=== PATIENT | male | born 1940 | race Caucasian/White ===

== ENCOUNTER 2018-08-31 01:45 | Outpatient (CLI) | payer OTHER, SELFPAY ==
[2018-08-31 11:29] LABS: CREATININE 1.42 mg/dL (0.70-1.30); Cholesterol 148 mg/dL (50-200); Estimated GFR 48.22 (mL/min/1.73m2); HDL Cholesterol 41 mg/dL (40-60); LDL CHOLESTEROL 91 mg/dL (<100); Potassium 4.5 mmol/L (3.5-5.1); Triglyceride 128 mg/dL (30-150)
== END 2018-08-31 02:05 ==
PROVIDERS: PCP Family Medicine; Visit Provider Family Medicine
DX: I10 Essential (primary) hypertension (principal); E78.5 Hyperlipidemia, unspecified
CPT/HCPCS: 36415; 80061; 83721; 82565; 84132

== ENCOUNTER 2019-09-01 09:06 | Outpatient (CLI) | payer OTHER, SELFPAY ==
[2019-09-01 11:09] LABS: CREATININE 1.31 mg/dL (0.70-1.30); Calculated LDL 59 mg/dL; Cholesterol 153 mg/dL (50-200); Estimated GFR 52.78 (mL/min/1.73m2); HDL Cholesterol 36 mg/dL (40-60); Potassium 4.1 mmol/L (3.5-5.1); Triglyceride 290 mg/dL (30-150)
== END 2019-09-01 09:26 ==
PROVIDERS: PCP Family Medicine; Visit Provider Family Medicine
DX: I10 Essential (primary) hypertension (principal)
CPT/HCPCS: 36415; 80061; 82565; 84132

== ENCOUNTER 2020-09-05 01:20 | Outpatient (CLI) | payer OTHER, SELFPAY ==
[2020-09-05 13:11] LABS: CREATININE 1.62 mg/dL (0.70-1.30); Calculated LDL 75 mg/dL (<100); Cholesterol 152 mg/dL (<200); HDL Cholesterol 39 mg/dL (40-60); Potassium 4.3 mmol/L (3.5-5.1); Triglyceride 192 mg/dL (<150)
== END 2020-09-05 01:40 ==
PROVIDERS: PCP Family Medicine; Visit Provider Family Medicine
DX: E78.5 Hyperlipidemia, unspecified (principal); I10 Essential (primary) hypertension
CPT/HCPCS: 36415; 80061; 82565; 84132

== ENCOUNTER 2021-04-18 09:52 | Outpatient (CLI) | payer OTHER, SELFPAY ==
[2021-04-18 12:53] LABS: Anion Gap 8.9 mmol/L (3-11); BUN 24 mg/dL (7-18); CO2 29.1 mmol/L (21.0-32.0); CREATININE 1.5 mg/dL (0.70-1.30); Calcium 9.7 mg/dL (8.5-10.1); Chloride 102 mmol/L (98-107); Estimated GFR 44.92 (mL/min/1.73m2); Glucose 93 mg/dL (74-106); Potassium 4.3 mmol/L (3.5-5.1); Sodium 140 mmol/L (136-145)
== END 2021-04-18 09:53 | disposition home or self-care (01) ==
LOC: LOS 09:52
PROVIDERS: PCP Family Medicine; Referring Provider Family Medicine; Visit Provider Family Medicine
DX: E87.1 Hypo-osmolality and hyponatremia (principal)
CPT/HCPCS: 36415; 80048

== ENCOUNTER 2022-08-05 02:47 | Outpatient (CLI) | payer MEDICARE, SELFPAY ==
[2022-08-05 13:23] LABS: Anion Gap 11.2 mmol/L (3-11); BUN 25 mg/dL (7-18); CO2 24.8 mmol/L (21.0-32.0); CREATININE 1.5 mg/dL (0.70-1.30); Calcium 9.4 mg/dL (8.5-10.1); Calculated LDL 69 mg/dL (<100); Chloride 101 mmol/L (98-107); Cholesterol 136 mg/dL (<200); Estimated GFR 46.19 (mL/min/1.73m2); Glucose 95 mg/dL (74-106); HDL Cholesterol 42 mg/dL (40-60); Potassium 3.7 mmol/L (3.5-5.1); Sodium 137 mmol/L (136-145); Triglyceride 128 mg/dL (<150)
== END 2022-08-05 02:48 | disposition home or self-care (01) ==
LOC: LOS 02:47
PROVIDERS: PCP Family Medicine; Visit Provider Family Medicine
DX: E78.5 Hyperlipidemia, unspecified (principal); E87.1 Hypo-osmolality and hyponatremia
CPT/HCPCS: 36415; 80048; 80061

== ENCOUNTER 2023-07-28 09:14 | Outpatient (CLI) | payer MEDICARE, SELFPAY ==
[2023-07-28 13:02] LABS: CREATININE 1.4 mg/dL (0.70-1.30); Estimated GFR 49.87 (mL/min/1.73m2); Potassium 3.7 mmol/L (3.5-5.1)
== END 2023-07-28 09:15 | disposition home or self-care (01) ==
LOC: LOS 09:14
PROVIDERS: PCP Family Medicine; Referring Provider Family Medicine; Visit Provider Family Medicine
DX: I10 Essential (primary) hypertension (principal)
CPT/HCPCS: 36415; 82565; 84132

== ENCOUNTER 2024-08-22 01:58 | Outpatient (CLI) | payer MEDICARE, SELFPAY ==
[2024-08-22 12:42] LABS: CREATININE 1.6 mg/dL (0.70-1.30); Estimated GFR 42.22 (mL/min/1.73m2); Potassium 4.2 mmol/L (3.5-5.1)
== END 2024-08-22 01:59 ==
LOC: LOS 01:59
PROVIDERS: PCP Family Medicine; Visit Provider Family Medicine
DX: I10 Essential (primary) hypertension (principal); F41.9 Anxiety disorder, unspecified; E66.9 Obesity, unspecified
CPT/HCPCS: 36415; 82565; 84132